=== PATIENT | female | born 1935 | race Caucasian/White ===

== ENCOUNTER → 2016-10-19 | Outpatient (CLI) | payer OTHER | END | disposition home or self-care (01) | LOC: ECT 09:15 | DX: F33.2 Major depressive disorder, recurrent severe without psychotic features (principal); E03.9 Hypothyroidism, unspecified; A60.00 Herpesviral infection of urogenital system, unspecified; N18.3 Chronic kidney disease, stage 3 (moderate); Z96.652 Presence of left artificial knee joint; Z85.3 Personal history of malignant neoplasm of breast; M16.10 Unilateral primary osteoarthritis, unspecified hip; I70.0 Atherosclerosis of aorta; Z87.19 Personal history of other diseases of the digestive system; Z88.6 Allergy status to analgesic agent ==

== ENCOUNTER 2016-11-01 06:04 | Outpatient (RCR) | payer MEDICARE, OTHER ==
[~2016-11-01] VITALS: Ht 152.4 cm; Wt 65.8 kg
[2016-11-01] MEDS ORDERED: Succinylcholine 20mg/ml 10ml vial ONE ×3 (06:05)
[2016-11-01] MEDS ORDERED: NS 550ML IV ONE ×3 (06:05)
[2016-11-01] MEDS ORDERED: Methohexital Sodium Syr 100mg/10ml IVP ONE ×3 (06:05)
== END 2016-11-09 | disposition home or self-care (01) ==
LOC: ECT 06:04
DX: F33.2 Major depressive disorder, recurrent severe without psychotic features (principal)
CPT/HCPCS: 90870; J0330; J7040

== ENCOUNTER 2016-11-10 08:57 | Outpatient (RCR) | payer OTHER ==
[~2016-11-10] VITALS: Ht 152.4 cm; Wt 65.8 kg
[2016-11-10] MEDS ORDERED: NS 550ML IV ONE (08:58)
[2016-11-10] MEDS ORDERED: Methohexital Sodium Syr 100mg/10ml IVP ONE (08:58)
[2016-11-10] MEDS ORDERED: Succinylcholine 20mg/ml 10ml vial ONE (08:58)
[2016-11-10] MEDS ORDERED: Atropine Sulfate 0.4mg/ml inj IVP PRN (10:33)
[2016-11-12] MEDS ORDERED: NS 550ML IV ONE (08:58)
[2016-11-12] MEDS ORDERED: Succinylcholine 20mg/ml 10ml vial ONE (08:58)
[2016-11-12] MEDS ORDERED: Methohexital Sodium Syr 100mg/10ml IVP ONE (08:58)
[2016-11-15] MEDS ORDERED: Methohexital Sodium Syr 100mg/10ml IVP ONE (12:00)
[2016-11-15] MEDS ORDERED: Succinylcholine 20mg/ml 10ml vial ONE (12:00)
[2016-11-15] MEDS ORDERED: NS 550ML IV ONE (12:00)
[2016-11-17] MEDS ORDERED: Methohexital Sodium Syr 100mg/10ml IVP ONE (08:00)
[2016-11-17] MEDS ORDERED: NS 550ML IV ONE (08:00)
[2016-11-17] MEDS ORDERED: Succinylcholine 20mg/ml 10ml vial ONE (08:00)
== END 2016-12-07 | disposition home or self-care (01) ==
LOC: ECT 08:57
DX: F33.2 Major depressive disorder, recurrent severe without psychotic features (principal)
CPT/HCPCS: 90870; J0330; J7040

== ENCOUNTER 2016-12-08 11:25 | Outpatient (RCR) | payer OTHER ==
[~2016-12-08] VITALS: Ht 152.4 cm; Wt 65.8 kg
[2016-12-08] MEDS ORDERED: Succinylcholine 20mg/ml 10ml vial ONE (11:26)
[2016-12-08] MEDS ORDERED: NS 550ML IV ONE (11:26)
[2016-12-08] MEDS ORDERED: Methohexital Sodium Syr 100mg/10ml IVP ONE (11:26)
== END 2017-01-07 | disposition home or self-care (01) ==
LOC: ECT 11:25
DX: F33.2 Major depressive disorder, recurrent severe without psychotic features (principal)
CPT/HCPCS: 90870; J0330; J7040